=== PATIENT | female | born 1955 | race Caucasian/White ===

== ENCOUNTER → 2016-09-09 07:08 | Day surgery (SDC) | payer OTHER ==
--- NOTE | 2016-08-22 13:10 | HP ---
PREOPERATIVE HISTORY AND PHYSICAL: DATE OF ADMISSION: 09/09/16 CHIEF COMPLAINT: Left foot pain. HISTORY OF PRESENT ILLNESS: Katie is a 61-year-old female who has been followed by Dr. Small for a right first metatarsal fracture. She underwent open reduction internal fixation about a year ago and had been doing well. She has had a couple of episodes where a very small portion of her incision opens up and has some drainage to it. She also states that there is swelling and redness when this occurs. After the drainage subsides, the swelling tends to go down. However, the patient is interested in surgical intervention at this point for hardware removal. PAST MEDICAL HISTORY: 1. Depression. 2. Anxiety. CURRENT MEDICATIONS: 1. Wellbutrin SR 150 mg 1 p.o. b.i.d. 2. Zoloft 100 mg 1 p.o. daily. ALLERGIES: CLINDAMYCIN, BACTRIM, and PENICILLIN. The patient has taken Keflex without any adverse reaction. SOCIAL HISTORY: The patient lives to take care of her mother. She is employed as a nurse at [employer]. She has never smoked. She drinks alcohol occasionally. REVIEW OF SYSTEMS: Constitutional: Negative for recent hospitalizations, fever , chills, night sweats, or weight loss. Head: Negative for headache, lightheadedness, or balance problems. Cardiovascular: Negative for chest or arm pain with exertion, history of heart attack, heart murmur, heart palpitations, high blood pressure, embolism, or deep venous thrombosis. Respiratory: Negative for chronic cough, shortness of breath with exertion, asthma, or COPD. Gastrointestinal: Negative for heartburn, nausea, vomiting, diarrhea, constipation, or GERD. Genitourinary: Negative for nighttime urination, frequency of urination, urinary tract infections, or kidney problems. Musculoskeletal: Negative for chronic back pain or recent fractures. Positive for foot fracture. Skin: Negative for rashes, lesions, lumps, or sores. Neurologic: Negative for seizure, stroke, epilepsy. Positive for depression or anxiety. Endocrine: Negative for diabetes or thyroid problems. Hematology: Negative for easy bleeding, bruising, or anemia. PHYSICAL EXAMINATION GENERAL: She is a well-developed, well-nourished pleasant female, in no acute distress at rest. She is alert and oriented x3 with appropriate mood and affect. VITAL SIGNS: The patient is 5 feet tall, 110 pounds. Blood pressure 151/99, pulse of 76, respirations 15. HEENT: Normocephalic, atraumatic. Hearing and vision are grossly intact. NECK: Her trachea is midline. RESPIRATORY: Lungs are clear to auscultation bilaterally. No wheezes, rales, or rhonchi. CARDIOVASCULAR: Regular rate and rhythm. No murmurs, rubs, or gallops. Normal S1 and S2. ABDOMEN: Soft, nondistended, nontender. Normal bowel sounds. EXTREMITIES: Exam of the left lower extremity, the incision over the dorsal aspect of the left foot is well healed. There is no active drainage or open wounds at this point. The hardware beneath the skin is somewhat palpable, although it is not particularly tender to palpation at this point. She has full range of motion with 5/5 strength. Her sensation to light touch is intact. She has 2+ dorsalis pedis pulse. IMPRESSION: Painful hardware of the left foot. PLAN: The patient is to undergo left foot hardware removal by Dr. Small on 12/19. The risks, benefits, and postoperative course were discussed with the patient at length and she would like to proceed. All of her questions were answered to her full satisfaction. She is understanding to call if she develops any problems or concerns. PORFIRIO DENNEY [id number]/[facility] #: [id number]
[~2016-09-09 07:08] MED LIST: Buffered Lidocaine 1% SYRIN* 3 ML/SYR SYRINGE INTRADERM ONE; Bupivacaine 0.5% SDV PF* 30 ML VIAL ONE; Dexamethasone IV* 4 MG/ML 1 ML (4 MG) IV SLOW PU ONE; Dexamethasone IV* 4 MG/ML 1 ML (4 MG) ONE; Dexmedetomidine* 200 MCG/2 ML 2 ML VIAL ONE; DiMENhydriNATE IV* 50 MG/ML VIAL IV PUSH PRN; Famotidine IV* 10 MG/ML 2 ML (20 mg) IV ONE; Famotidine IV* 10 MG/ML 2 ML (20 mg) ONE; HYDROmorphone* 1 MG/ML 1 ML SYR IV PRN; HYDROmorphone* 1 MG/ML 1 ML SYR ONE; Midazolam* 1 MG/ML 5 ML VIAL (5 MG) ONE; PROCHLORPERAZINE INJ 5 MG/ML 2 ML VIAL IV PRN; Scopolamine 1.5 mg* PATCH TRANSDERM PRN; Scopolomine PATCH Remove* 1 NOTE MISC PATCH OFF ONE; ceFAZolin 2 GM PREMIX(*) 2 GM/50 ML BAG IVPB ONE; fentaNYL* 50 MCG/ML 2 ML VIAL (100 MCG VIAL) IV PRN; fentaNYL* 50 MCG/ML 2 ML VIAL (100 MCG VIAL) ONE; oxyCODONE TAB* 5 MG TAB ONE
[2016-09-09 13:04] VITALS: BP 134/86
--- NOTE | 2016-09-10 01:07 | OP ---
DATE OF OPERATION: 09/09/16 - [facility] DATE OF : 59 SURGEON: Sergio Small MD [place] SEAMER: Gaby Mckoy PA-C. ANESTHESIOLOGIST: Hiram Coronado MD ANESTHESIA: Spinal PRE-OP DIAGNOSIS: Painful hardware left mid foot, previous [place]. POST-OP DIAGNOSIS: Painful hardware left mid foot, previous [place]. OPERATIVE PROCEDURE: Removal of two plates, left mid foot. DESCRIPTION OF PROCEDURE: The patient was taken to the operating room where a longitudinal incision was made along the first metatarsal. We reflected dorsally and medially to allow visualization of both plates. The screws were removed from both plates using a combination of locking and nonlocking screwdriver and then the plates removed as well. We irrigated thoroughly, closing with 3-0 Vicryl and 4-0 nylon and a compression dressing applied. [id number]/[facility] #: [id number] MTDD
== END | disposition home or self-care (01) ==
LOC: OR 07:08
PROVIDERS: ATTEND Orthopaedic Surgery
DX: T84.84XA Pain due to internal orthopedic prosthetic devices, implants and grafts, initial encounter (principal); Y83.1 Surgical operation with implant of artificial internal device as the cause of abnormal reaction of the patient, or of later complication, without mention of misadventure at the time of the procedure; S92.311S Displaced fracture of first metatarsal bone, right foot, sequela; X58.XXXS Exposure to other specified factors, sequela
CPT/HCPCS: 88300; A9270-GY; J0690; J1100; J1170; J2250; J3010